=== PATIENT | female | born 1955 | race Caucasian/White ===

== ENCOUNTER → 2017-03-10 | Outpatient (CLI) | payer OTHER ==
[2014-05-08 09:52] VITALS: BP 153/86
[~2017-03-10] MED LIST: ACET325T9 PO; ASCO500T PO; CALC500T30 PO; CHOL100014 PO; CYAN10005 PO; LEXAPRO20 MG PO; LISI2.5T PO; OMEP40CA5 PO; PROG100C2 PO; TRAM200T2 PO
--- NOTE | 2017-03-10 15:52 | KCIC ---
Three-view right shoulder dated 03/10/2017. No comparison available. Clinical indication: Chronic shoulder pain, worsening over the last 6 months. Findings: 3 views right shoulder show normal bony alignment. No displaced fracture. No acute osseous or articular abnormality. Mild hypertrophic change of the AC joint. Surgical clips at the right axilla. IMPRESSION: No acute radiographic abnormality. Electronically signed by: Amado Booth MD (03/10/2017 3:49 PM) [facility]
--- NOTE | 2017-03-10 15:54 | KCIC ---
Three-view left ankle dated 03/10/2017. Comparison made to 05/16/2004. CLINICAL INDICATION: Left ankle pain and swelling for one month. FINDINGS: 3 views left ankle show normal bony alignment. No displaced fracture. No acute osseous or articular abnormality. No apparent joint effusion or loose body. Talar dome is intact. IMPRESSION: No acute radiographic abnormality. Electronically signed by: Amado Booth MD (03/10/2017 3:51 PM) [facility]
== END | disposition home or self-care (01) ==
LOC: KCIC 15:15
PROVIDERS: ATTEND Nurse Practitioner Family
DX: M25.511 Pain in right shoulder (principal); M25.572 Pain in left ankle and joints of left foot; G89.29 Other chronic pain; R26.2 Difficulty in walking, not elsewhere classified
CPT/HCPCS: 73030; 73610

== ENCOUNTER → 2017-03-19 | Outpatient (CLI) | payer OTHER ==
[2014-05-08 09:52] VITALS: BP 153/86
--- NOTE | 2017-03-19 15:42 | KCIC ---
MR of the right shoulder Indication: Right shoulder pain for 2 or 3 years. No known injury. Technique: Standard multiplanar sequences are obtained. Findings: Mild motion degradation Acromioclavicular joint:Intact. Rotator cuff: Thickening and hyperintense signal throughout the rotator cuff compatible with tendinosis. Small superficial undersurface tear of the anterior supraspinatus tendon, about 20 or 30 percent deep and measures less than 1 cm diameter. No large or full-thickness rotator cuff tear. No significant subdeltoid bursal fluid. Glenohumeral cartilage: No acute defect or advanced DJD. Fluid: No significant joint effusion. Labrum: Tear of the superior labrum. Mild signal at the base of the posterior labrum also may represent a tear but evaluation is limited by the motion degradation. Biceps tendon: Tendinosis. Bones: No lesion or acute fracture. Soft tissue: No acute findings. Impression: 1. Rotator cuff tendinosis. Small superficial undersurface tear of the supraspinatus tendon. No full-thickness rotator cuff tear. 2. Superior labral tear. There may be a small posterior labral tear but exam limited by motion. Electronically signed by: Amado Sims MD (03/19/2017 3:39 PM) [facility]
== END | disposition home or self-care (01) ==
LOC: KCIC MRI 14:13
PROVIDERS: ATTEND Nurse Practitioner Family
DX: S43.431A Superior glenoid labrum lesion of right shoulder, initial encounter (principal); M75.101 Unspecified rotator cuff tear or rupture of right shoulder, not specified as traumatic; X58.XXXA Exposure to other specified factors, initial encounter; Y93.89 Activity, other specified; Y92.89 Other specified places as the place of occurrence of the external cause; Y99.8 Other external cause status
CPT/HCPCS: 73221

== ENCOUNTER 2018-08-31 19:30 | Emergency (ER) | payer OTHER ==
[~2018-08-31] VITALS: Ht 170.2 cm; Wt 86.2 kg
[~2018-08-31 19:30] MED LIST changes: -TRAM200T2 PO; +TRAM200T34 PO
[2018-08-31] MEDS ORDERED: ONDANSETRON PF 4 MG/2 ML VIAL. ONE (19:44)
[2018-08-31] MEDS ORDERED: HYDROmorphone 2 MG/ML VIAL IV ONE ×2 (19:45→20:15)
[2018-08-31] MEDS ORDERED: HYDROmorphone 2 MG/ML VIAL ONE (19:45)
[2018-08-31] MEDS ORDERED: ONDANSETRON PF 4 MG/2 ML VIAL. IV ONE (19:45)
[2018-08-31 20:00] LABS: BASO # 0.1 x10^3/uL (0.0-0.2); BASO % 1 % (0-3); EOS # 0.1 x10^3/uL (0.0-0.7); EOS % 1 % (0-3); HEMATOCRIT 43.1 % (36.0-47.0); HEMOGLOBIN 14.3 g/dL (12.0-15.5); LYMPH # 1.9 x10^3/uL (1.0-4.8); LYMPH % 20 % (24-48); MEAN CORPUSCULAR HEMOGLOBIN 29 pg (25-35); MEAN CORPUSCULAR HGB CONC 33 g/dL (31-37); MEAN CORPUSCULAR VOLUME 86 fL (79-100); MONO # 0.6 x10^3/uL (0.0-1.1); MONO % 6 % (0-9); NEUT # 6.9 x10^3uL (1.8-7.7); NEUT % 72 % (31-73); PLATELET COUNT 281 x10^3/uL (140-400); RED CELL DISTRIBUTION WIDTH 13.8 % (11.5-14.5); WHITE BLOOD COUNT 9.6 x10^3/uL (4.0-11.0)
--- NOTE | 2018-08-31 20:07 | PHYS DOC ---
Adult General Chief Complaint Chief Complaint: MECHANICAL FALL HPI HPI Patient is a 63-year-old female who presents with complaint of severe pain to her right shoulder and upper arm after falling this evening. Injury occurred just prior to coming to the emergency room. Patient was stepping over a dog bed and tripped and fell onto outstretched right arm. Review of Systems Review of Systems Constitutional: Denies fever or chills [] Eyes: Denies change in visual acuity, redness, or eye pain [] HENT: Denies nasal congestion or sore throat [] Respiratory: Denies cough or shortness of breath [] Cardiovascular: No additional information not addressed in HPI [] GI: Denies abdominal pain, nausea, vomiting, bloody stools or diarrhea [] : Denies dysuria or hematuria [] Musculoskeletal: Denies back pain or joint pain [] Integument: Denies rash or skin lesions [] Neurologic: Denies headache, focal weakness or sensory changes [] Endocrine: Denies polyuria or polydipsia [] All other systems were reviewed and found to be within normal limits, except as documented in this note. Current Medications Current Medications Current Medications Medications (Trade) Dose Ordered Sig/Ricarda Start Time Stop Time Status Last Admin Dose Admin Fentanyl Citrate (Fentanyl 2ml Vial) 25 mcg 1X ONCE 08/31/18 21:30 08/31/18 21:31 DC 08/31/18 21:30 25 MCG Hydromorphone HCl (Dilaudid) 1 mg 1X ONCE 08/31/18 20:15 08/31/18 20:16 DC 08/31/18 20:15 1 MG Ondansetron HCl (Zofran) 4 mg STK-MED ONCE 08/31/18 19:44 08/31/18 19:45 DC Allergies Allergies Allergies Coded Allergies Type Severity Reaction Last Updated Verified ibuprofen Allergy Mild 05/08/14 Yes Physical Exam Physical Exam Constitutional: Well developed, well nourished, no acute distress, non-toxic appearance. [] HENT: Normocephalic, atraumatic, bilateral external ears normal, oropharynx moist, no oral exudates, nose normal. [] Eyes: PERRLA, EOMI, conjunctiva normal, no discharge. [] Neck: Normal range of motion, no tenderness, supple, no stridor. [] Cardiovascular:Heart rate regular rhythm, no murmur [] Lungs & Thorax: Bilateral breath sounds clear to auscultation [] Abdomen: Bowel sounds normal, soft, no tenderness, no masses, no pulsatile masses. [] Skin: Warm, dry, no erythema, no rash. [] Back: No tenderness, no CVA tenderness. [] Extremities: No tenderness, no cyanosis, no clubbing, ROM intact, no edema. [] Neurologic: Alert and oriented X 3, normal motor function, normal sensory function, no focal deficits noted. [] Psychologic: Affect normal, judgement normal, mood normal. [] Current Patient Data Vital Signs Vital Signs Date Time Temp Pulse Resp B/P (MAP) Pulse Ox O2 Delivery O2 Flow Rate FiO2 08/31/18 22:30 82 18 96 08/31/18 21:30 Room Air 08/31/18 20:01 98.4 111/72 (85) 98.4 Lab Values Laboratory Tests Test 08/31/18 19:50 White Blood Count 9.6 x10^3/uL (4.0-11.0) Red Blood Count 5.00 x10^6/uL (3.50-5.40) Hemoglobin 14.3 g/dL (12.0-15.5) Hematocrit 43.1 % (36.0-47.0) Mean Corpuscular Volume 86 fL (79-100) Mean Corpuscular Hemoglobin 29 pg (25-35) Mean Corpuscular Hemoglobin Concent 33 g/dL (31-37) Red Cell Distribution Width 13.8 % (11.5-14.5) Platelet Count 281 x10^3/uL (140-400) Neutrophils (%) (Auto) 72 % (31-73) Lymphocytes (%) (Auto) 20 % (24-48) L Monocytes (%) (Auto) 6 % (0-9) Eosinophils (%) (Auto) 1 % (0-3) Basophils (%) (Auto) 1 % (0-3) Neutrophils # (Auto) 6.9 x10^3uL (1.8-7.7) Lymphocytes # (Auto) 1.9 x10^3/uL (1.0-4.8) Monocytes # (Auto) 0.6 x10^3/uL (0.0-1.1) Eosinophils # (Auto) 0.1 x10^3/uL (0.0-0.7) Basophils # (Auto) 0.1 x10^3/uL (0.0-0.2) Sodium Level 139 mmol/L (136-145) Potassium Level 4.1 mmol/L (3.5-5.1) Chloride Level 98 mmol/L (98-107) Carbon Dioxide Level 24 mmol/L (21-32) Anion Gap 17 (6-14) H Blood Urea Nitrogen 22 mg/dL (7-20) H Creatinine 1.1 mg/dL (0.6-1.0) H Estimated GFR (Cockcroft-Gault) 50.2 BUN/Creatinine Ratio 20 (6-20) Glucose Level 163 mg/dL (70-99) H Calcium Level 9.3 mg/dL (8.5-10.1) Total Bilirubin 0.2 mg/dL (0.2-1.0) Aspartate Amino Transferase (AST) 14 U/L (15-37) L Alanine Aminotransferase (ALT) 20 U/L (14-59) Alkaline Phosphatase 82 U/L (46-116) Total Protein 7.9 g/dL (6.4-8.2) Albumin 3.9 g/dL (3.4-5.0) Albumin/Globulin Ratio 1.0 (1.0-1.7) Laboratory Tests 08/31/18 19:50 Laboratory Tests 08/31/18 19:50 EKG EKG [] Radiology/Procedures Radiology/Procedures [] Impressions: PROCEDURE: CT UPPR EXTREMTY WO CONTRST RT PQRS Compliance statement: One or more of the following individualized dose reduction techniques were utilized for this examination: 1. Automated exposure control. 2. Adjustment of the mA and/or kV according to patient size. 3. Use of iterative reconstruction technique. Indication:rt shoulder pain, prior mri sent TECHNIQUE: CT right shoulder without IV contrast with multiplanar reformats. COMPARISON: Plain films from the same day earlier FINDINGS: Comminuted mildly displaced fracture is seen involving the humeral head extending to the articular surface. Acromioclavicular joint is intact. Scapula is intact. Visualized right ribs demonstrate no acute fractures. Edema and possibly hematoma seen at the fracture site. Axillary metallic clips likely from lymph node dissection. Visualized right lung is clear. IMPRESSION: Comminuted mildly displaced fracture of the humeral head extending to the articular surface with surrounding edema and hematoma. Electronically signed by: Gilmar Jcaobsen DO (08/31/2018 9:54 PM) [facility] Course & Med Decision Making Course & Med Decision Making Pertinent Labs and Imaging studies reviewed. (See chart for details) [] Dragon Disclaimer Dragon Disclaimer This electronic medical record was generated, in whole or in part, using a voice recognition dictation system. Departure Departure Impression: Primary Impression: Fracture of humeral head, closed Disposition: HOME, SELF-CARE Condition: STABLE Referrals: BLANCA GREGG MD (PCP) DEIDRA SANDERSON MD Patient Instructions: Humerus Fracture, Treated with Immobilization Scripts Oxycodone/Apap 7.5-325 (PERCOCET 7.5-325 MG TABLET ) 1 Each Tablet 1 TAB PO PRN Q6HRS PRN for PAIN, #15 TAB 0 Refills Prov: MICKEY QUIGLEY Jr., DO 08/31/18 Problem Qualifiers Primary Impression: Fracture of humeral head, closed Encounter type: initial encounter Laterality: right Qualified Codes: S42.291A - Other displaced fracture of upper end of right humerus, initial encounter for closed fracture MICKEY QUIGLEY Jr., DO Aug 31, 2018 20:07
[2018-08-31 20:10] LABS: CALCIUM 9.3 mg/dL (8.5-10.1); CREATININE 1.1 mg/dL (0.6-1.0); GFR 50.2; POTASSIUM 4.1 mmol/L (3.5-5.1)
[2018-08-31 20:16] LABS: ALBUMIN 3.9 g/dL (3.4-5.0); TOTAL BILIRUBIN 0.2 mg/dL (0.2-1.0); TOTAL PROTEIN 7.9 g/dL (6.4-8.2)
--- NOTE | 2018-08-31 20:30 | RAD ---
Indication: Trauma TECHNIQUE: 2 views of the right shoulder joint, 3 views of the right elbow and single lateral view of the humerus. COMPARISON: None FINDINGS: Shoulder: No acute fracture or dislocation. Right lung is clear. Acromioclavicular joint is intact. Elbow: No acute fracture or dislocation. Humerus: No acute fractures. IMPRESSION: As above. Electronically signed by: Gilmar Jacobsen DO (08/31/2018 8:27 PM) [facility]
[2018-08-31] MEDS ORDERED: fentaNYL PF VIAL 100 MCG/2 ML VIAL IV ONE (21:30)
--- NOTE | 2018-08-31 21:57 | RAD ---
PQRS Compliance statement: One or more of the following individualized dose reduction techniques were utilized for this examination: 1. Automated exposure control. 2. Adjustment of the mA and/or kV according to patient size. 3. Use of iterative reconstruction technique. Indication:rt shoulder pain, prior mri sent TECHNIQUE: CT right shoulder without IV contrast with multiplanar reformats. COMPARISON: Plain films from the same day earlier FINDINGS: Comminuted mildly displaced fracture is seen involving the humeral head extending to the articular surface. Acromioclavicular joint is intact. Scapula is intact. Visualized right ribs demonstrate no acute fractures. Edema and possibly hematoma seen at the fracture site. Axillary metallic clips likely from lymph node dissection. Visualized right lung is clear. IMPRESSION: Comminuted mildly displaced fracture of the humeral head extending to the articular surface with surrounding edema and hematoma. Electronically signed by: iGlmar Jacobsen DO (08/31/2018 9:54 PM) [facility]
[2018-08-31 22:30] VITALS: BP 122/76
[2018-08-31] MEDS ORDERED: OXYC1TAB19 PO (23:00)
[2018-08-31] MEDS ORDERED: oxyCODONE/APAP 7.5/325 1 TAB TABLET PO ONE (23:15)
[2018-08-31] MEDS ORDERED: ORPH100T PO (23:15)
--- NOTE | 2018-09-02 08:16 | RAD ---
ADDENDUM Addendum: Cortical abnormality seen in the humeral head concerning for a fracture. CT of the right shoulder can be obtained for better evaluation. Electronically signed by: Gilmar Dubon DO (08/31/2018 8:58 PM) [facility] DICTATED AND SIGNED BY: GILMAR DUBON DO DATE: 08/31/182057 CC: MICKEY QUIGLEY Jr. DO; YOVANI MCKNIGHT APRN ~ Indication: Trauma TECHNIQUE: 2 views of the right shoulder joint, 3 views of the right elbow and single lateral view of the humerus. COMPARISON: None FINDINGS: Shoulder: No acute fracture or dislocation. Right lung is clear. Acromioclavicular joint is intact. Elbow: No acute fracture or dislocation. Humerus: No acute fractures. IMPRESSION: As above. Electronically signed by: Gilmar Dubon DO (08/31/2018 8:27 PM) [facility] DICTATED and SIGNED BY: GILMAR DUBON DO DATE: 08/31/182026 [facility]
== END 2018-08-31 23:05 | disposition home or self-care (01) ==
LOC: ER 19:30
DX: S42.291A Other displaced fracture of upper end of right humerus, initial encounter for closed fracture (principal); Z88.8 Allergy status to other drugs, medicaments and biological substances; W18.31XA Fall on same level due to stepping on an object, initial encounter; Y93.89 Activity, other specified; Y92.89 Other specified places as the place of occurrence of the external cause; Y99.8 Other external cause status
CPT/HCPCS: 36415; 73030; 73060; 73080; 73200; 80053; 85025; 96374; 96375; 99285; J1170; J2405; J3010

== ENCOUNTER → 2019-02-22 | Outpatient (CLI) | payer OTHER ==
[~2019-02-22] MED LIST changes: +ASCO-219 PO; -ASCO500T PO; +CYAN-25 PO; -CYAN10005 PO; +OMEP40CA45 PO; -OMEP40CA5 PO; +ORPH100T PO; +OXYC1TAB19 PO; +PROG100C10 PO; -PROG100C2 PO
--- NOTE | 2019-02-22 16:29 | KCIC ---
MR of the right shoulder HISTORY: Right shoulder pain, injury July 2018. Closed healing fracture. TECHNIQUE: Routine multiplanar sequences are obtained. COMPARISON: None FINDINGS: Acromioclavicular joint is intact. Mild thickening and heterogeneous signal within the rotator cuff compatible with tendinosis. No measurable rotator cuff tear or rupture. No significant subdeltoid bursal effusion. No advanced rotator cuff muscle atrophy. Trace subdeltoid bursal fluid. Trace glenohumeral joint effusion. Glenohumeral joint DJD with mild chondromalacia. Signal deep to the superior labrum is thought to represent normal cartilage and sublabral sulcus. No definite labral tear or detachment. Biceps tendon is intact. Fracture of the right humeral neck is identified, corresponds with radiographs of 02/20/2019. Mild impaction at fracture site. No additional fractures are identified. IMPRESSION: 1. Rotator cuff tendinosis without evidence of a tear. 2. Humeral neck fracture. Electronically signed by: Amado Sims MD (02/22/2019 4:26 PM) [facility]
== END | disposition home or self-care (01) ==
LOC: KCIC MRI 10:39
PROVIDERS: ATTEND Orthopaedic Surgery
DX: S42.91XD Fracture of right shoulder girdle, part unspecified, subsequent encounter for fracture with routine healing (principal); X58.XXXD Exposure to other specified factors, subsequent encounter; M94.211 Chondromalacia, right shoulder; M19.011 Primary osteoarthritis, right shoulder; M75.101 Unspecified rotator cuff tear or rupture of right shoulder, not specified as traumatic; M25.411 Effusion, right shoulder
CPT/HCPCS: 73221